=== PATIENT | male | born 1975 | race Caucasian/White ===

== ENCOUNTER 2018-04-06 12:22 | Emergency (ER) | payer OTHER ==
[~2018-04-06] VITALS: Ht 177.8 cm; Wt 97.5 kg
[~2018-04-06 12:22] MED LIST: ADDERALL 20 MG20 M1 PO; ALLOPURINOL; ALLOPURINOL 30300 M3 PO; AMBIEN 10 MG TA10 MG PO; AMITRIPTYLINE H50 M3; AMITRIPTYLINE PO; AMLODIPINE; AMLODIPINE BESY10 MG PO; AMOXICILLIN 50500 M1; APAP500; AUGMENTIN 875875 MG; BACTROBAN22 GM; BENICAR; BENICAR20 MG OR; BENICAR40 MG PO; BIAXIN 500 MG500 M1; CATAPRES-TTS 10.1 M1 TD; CATAPRES-TTS 20.2 M1; CELEXA 20 MG TA20 MG; CELEXA40 MG PO; CLONAZEPAM; CLONIDINE0.1 PO; CO Q-10200 MG PO; DIABETA; DIABETA 1.25M1.25 M1 OR; DIABETA 5MG TABL5 MG PO; DIAZEPAM 2MG TAB2 MG PO; ELAVIL PO; FLEXERIL; FLOXIN OTI0.3 %/5 M1 OTIC; GLUCOPHAGE500 MG PO; GLUMETZA500 PO; GLYBURIDE 5 MG T5 M1 PO; HYDROCODON-ACE1 EAC7; HYDROCODON-ACE1 EAC7 PO; HYDROCODON-ACE1 EAC8; HYDROCODON-ACE1 EAC8 PO; IMITREX4 MG/0.5 M; INVOKANA300 MG PO; KENALOG IN ORABA5 GM DT; L-CARNITINE250 MG PO; LEVAQUIN 500 M500 M2; LEVEMIR SC; LIDODERM 5%1 PATC1 TD; LISINOPRIL10 MG PO; LISINOPRIL20 MG PO; LOPID600 MG PO; LOPRESSOR100 MG PO; LORAZEPAM 1 MG T1 MG PO; LORTAB PO; MAALOX525 MG/15 PO; MAXALT MLT10 MG PO; METFORMIN; METFORMIN HCL500 M2 PO; METOCLOPRAMIDE10 MG PO; MOBIC15 MG PO; NEURONTIN 300300 M1; NEURONTIN 300300 M1 PO; NEXIUM20 M1 PO; NEXIUM40 MG PO; NORVASC 5 MG TAB5 MG PO; NORVASC10 MG OR; OCUFLOX10 ML; ONDANSETRON HCL4 M2 PO; PERCOCET 5-3251 EACH PO; PHENERGAN 25 MG25 M1 PO; PHENERGAN25 M2 PO; PHENERGAN50 MG RC; PREVALITE PACKE1 PKT PO; PROMETHAZINE HC25 M1 PO; PROTONIX40 M2; PROTONIX40 M2 PO; PROZAC40 MG PO; QUESTRAN LIGHT P4 GM; REGLAN 10 MG TA10 MG PO; REMERON15 MG; SEROQUEL 100 M100 M1 PO; SEROQUEL 50 MG50 MG PO; SUBOXONE 2 MG-1 EACH PO; TOPAMAX; TOPAMAX50 MG PO; TOPROL XL100 MG PO; TRAMADOL 50 MG50 MG PO; TRANSDERM-SCOP1 EACH; VENLAFAXIN75 MG/1 T2 PO; VIT B 1; VITAMIN B-1100 M1 PO; XANAX 0.5 MG0.5 M1 PO; XANAX 0.5 MG0.5 MG PO; ZESTRIL40 MG PO; ZOFRAN ODT4 MG PO; ZOFRAN PO; ZOFRAN4 MG PO; ZYPREXA 10 MG T10 M1 PO; ZYPREXA2.5 MG PO
[2018-04-06 13:01] LABS: HEMATOCRIT 38.7 % (42.0-52.0); HEMOGLOBIN 13.1 gm/dL (14.0-18.0); MCH 30.3 pg (26.0-34.0); MCHC 33.8 g/dL (28.0-37.0); MCV 89.8 fL (80.0-100.0); RBC 4.31 mil/uL (4.50-6.00); RDW 14.6 % (10.5-14.5); WBC 8.5 thou/uL (4.0-11.0)
[2018-04-06 13:10] LABS: CALCIUM 9.5 mg/dL (8.5-10.1); CREATININE 1.3 mg/dL (0.7-1.3); POTASSIUM 5.2 mmol/L (3.5-5.1)
[2018-04-06 13:16] LABS: ALBUMIN 3.3 g/dL (3.4-5.0); TOTAL BILIRUBIN 0.3 mg/dL (<0.1-1.0); TOTAL PROTEIN 7.8 g/dL (6.4-8.2)
[2018-04-06] MEDS ORDERED: EFFEXOR XR75 MG PO (15:04)
[2018-04-06] MEDS ORDERED: ZOFRAN ODT4 MG PO (15:04)
[2018-04-06 15:28] VITALS: BP 154/100
== END 2018-04-06 15:30 | disposition home or self-care (01) ==
LOC: ER 12:22
PROVIDERS: Emergency Medicine
DX: F19.280 Other psychoactive substance dependence with psychoactive substance-induced anxiety disorder (principal); E11.65 Type 2 diabetes mellitus with hyperglycemia; I10 Essential (primary) hypertension; M10.9 Gout, unspecified; Z90.49 Acquired absence of other specified parts of digestive tract; F17.210 Nicotine dependence, cigarettes, uncomplicated; Z88.5 Allergy status to narcotic agent

== ENCOUNTER 2018-08-10 01:02 | Emergency (ER) | payer OTHER ==
[~2018-08-10] VITALS: Ht 177.8 cm; Wt 95.3 kg
[~2018-08-10 01:02] MED LIST changes: +EFFEXOR XR75 MG PO
[2018-08-10 01:34] LABS: BE(vivo) -6.1 mmol/L (-2 to +3); HCO3 17.5 mmol/L (22.0-26.0); PCO2 VENOUS 29.3 mmHg (41.0-51.0); PO2 VENOUS 74.7 mmHg (35.0-45.0)
[2018-08-10 01:45] LABS: HEMATOCRIT 36.4 % (42.0-52.0); HEMOGLOBIN 12.4 gm/dL (14.0-18.0); MCHC 34.2 g/dL (28.0-37.0); MCV 90.7 fL (80.0-100.0); RBC 4.01 mil/uL (4.50-6.00); RDW 13.5 % (10.5-14.5); WBC 10.8 thou/uL (4.0-11.0)
[2018-08-10 01:57] LABS: ANION GAP 15 mmol/L (7-16); BUN 21 mg/dL (7-18); CALCIUM 9.4 mg/dL (8.5-10.1); CHLORIDE 97 mmol/L (98-107); CO2 20 mmol/L (21-32); CREATININE 1.2 mg/dL (0.7-1.3); GLUCOSE 276 mg/dL (74-106); POTASSIUM 4.2 mmol/L (3.5-5.1); SODIUM 132 mmol/L (136-145)
[2018-08-10 02:07] LABS: ALBUMIN 3.1 g/dL (3.4-5.0); LIPASE 393 U/L (73-393); SGOT 14 U/L (15-37); SGPT 21 U/L (30-65); TOTAL BILIRUBIN 0.2 mg/dL (<0.1-1.0); TOTAL PROTEIN 7.6 g/dL (6.4-8.2); TROPONIN-I <0.06 ng/mL (<0.06)
[2018-08-10 03:47] LABS: URINE BILIRUBIN NEGATIVE (Negative); URINE BLOOD 1+ (Negative); URINE CLARITY CLEAR; URINE COLOR YELLOW; URINE GLUCOSE-RANDOM* 3+ (Negative); URINE KETONES NEGATIVE (Negative); URINE LEUKOCYTES-REFLEX NEGATIVE (Negative); URINE NITRITE-REFLEX NEGATIVE (Negative); URINE PROTEIN (DIPSTICK) 2+ (Negative); URINE UROBILINOGEN 0.2 E.U./dl (0.2-1.0)
[2018-08-10 03:55] LABS: BACTERIA-REFLEX None Seen /HPF (None Seen); CASTS None Seen /LPF (None Seen); CRYSTALS None Seen /LPF (None Seen); MUCUS None Seen strn/LPF (None Seen); SQUAMOUS None Seen /LPF (0-3); URINE RBC 0-2 Rare /HPF (0-2); URINE WBC-REFLEX None Seen /HPF (0-5)
[2018-08-10] MEDS ORDERED: REGLAN 10 MG TA10 MG PO (03:57)
[2018-08-10 04:03] VITALS: BP 139/84
--- NOTE | 2018-08-10 07:24 | EKG ---
[address] [address] ELECTROCARDIOGRAM REPORT Name: GORDONHYACINTH BHATTNE Room #: DEP Aidan#: [id number] ������������������ Admission: 08/10/18 ������������������ Attend Phys: Discharge: 08/10/18 ������������������ Date of : 71 Report #: [id number] ����������������������������������������������������������������� [id number] THIS REPORT FOR: //name// [facility] ED Test Date: 2018-08-10 Test Time: 01:52:03 Pat Name: HYACINTH LEYVA Department: Room: Gender: M Corrective Therapist: elizabeth : 1975 Requested By: Tamiko Garcia Order Number: [id number] MD: Santhosh Amador Measurements Intervals [place] Rate: 74 P: 49 OH: 158 QRS: 45 QRSD: 90 T: 41 QT: 362 QTc: 402 Interpretive Statements Sinus rhythm Normal tracing Compared to ECG 11/16/2010 16:00:49 No significant changes Electronically Signed On 08-10-2018 7:24:37 CDT by Santhosh Amador [email or web address] ��������������������������������������������� <ELECTRONICALLY SIGNED> ���������������������������������������� By: Santhosh Amador MD, [facility] ��������������������������������������������� 08/10/18 0724 0152 015 Santhosh Amador MD, FACC /EPI
== END 2018-08-10 04:09 | disposition home or self-care (01) ==
LOC: ER 01:02
PROVIDERS: Student in an Organized Health Care Education/Training Program
DX: E11.43 Type 2 diabetes mellitus with diabetic autonomic (poly)neuropathy (principal); K31.84 Gastroparesis; I10 Essential (primary) hypertension; M10.9 Gout, unspecified; F17.210 Nicotine dependence, cigarettes, uncomplicated; Z90.49 Acquired absence of other specified parts of digestive tract; Z79.899 Other long term (current) drug therapy; Z88.5 Allergy status to narcotic agent

== ENCOUNTER 2018-08-28 10:57 | Inpatient (IN) | payer OTHER ==
[~2018-08-28] VITALS: Ht 177.8 cm; Wt 102.1 kg
[2018-08-28 10:57] VITALS: BP 174/114
[~2018-08-28 10:57] MED LIST changes: -VENLAFAXIN75 MG/1 T2 PO
[2018-08-28 12:19] LABS: ABSOLUTE NEUTROPHILS 7.2 thou/uL (1.4-8.2); EOSINOPHILS 1.6 % (0.0-3.0); HEMATOCRIT 41.6 % (42.0-52.0); HEMOGLOBIN 14.5 gm/dL (14.0-18.0); LYMPHOCYTES 14.8 % (24.0-44.0); MCH 31.6 pg (26.0-34.0); MCHC 34.8 g/dL (28.0-37.0); MCV 90.9 fL (80.0-100.0); MONOCYTES 9.1 % (1.0-8.0); PLATELET COUNT 385 thou/uL (150-400); POLYS 73.5 % (36.0-66.0); RBC 4.57 mil/uL (4.50-6.00); RDW 13.9 % (10.5-14.5); WBC 9.8 thou/uL (4.0-11.0)
[2018-08-28 12:23] LABS: BE(vivo) -10.4 mmol/L (-2 to +3); HCO3 12.2 mmol/L (22.0-26.0); PCO2 VENOUS 21.2 mmHg (41.0-51.0); PO2 VENOUS 56.9 mmHg (35.0-45.0)
[2018-08-28 12:27] LABS: CALCIUM 9.7 mg/dL (8.5-10.1); CREATININE 1.4 mg/dL (0.7-1.3); POTASSIUM 3.8 mmol/L (3.5-5.1)
[2018-08-28 12:33] LABS: ALBUMIN 3.8 g/dL (3.4-5.0); TOTAL BILIRUBIN 0.4 mg/dL (<0.1-1.0); TOTAL PROTEIN 8.8 g/dL (6.4-8.2)
[2018-08-28 16:23] VITALS: BP 190/112
[2018-08-28 17:07] LABS: URINE BILIRUBIN NEGATIVE (Negative); URINE BLOOD 2+ (Negative); URINE CLARITY CLEAR; URINE COLOR YELLOW; URINE GLUCOSE-RANDOM* TRACE (Negative); URINE KETONES 1+ (Negative); URINE LEUKOCYTES-REFLEX NEGATIVE (Negative); URINE NITRITE-REFLEX NEGATIVE (Negative); URINE PROTEIN (DIPSTICK) 3+ (Negative); URINE SPECIFIC GRAVITY 1.025 (1.005-1.035); URINE UROBILINOGEN 0.2 E.U./dl (0.2-1.0)
[2018-08-28 17:15] LABS: CASTS None Seen /LPF (None Seen); CRYSTALS None Seen /LPF (None Seen); SQUAMOUS 0-3 Few /LPF (0-3)
[2018-08-28 17:16] LABS: BACTERIA-REFLEX 1-9 Few /HPF (None Seen); URINE RBC 0-2 Rare /HPF (0-2); URINE WBC-REFLEX None Seen /HPF (0-5)
--- NOTE | 2018-08-28 18:36 | NUR ---
CALLED DR. BARONE DUE TO PT CONTINUE TO C/O PAIN. NEW ORDER FOR PAIN MEDS.
--- NOTE | 2018-08-28 19:41 | NUR ---
BED ASSIGNMENT 357
[2018-08-28 20:15] VITALS: BP 190/118
[2018-08-28 20:51] VITALS: BP 208/121
--- NOTE | 2018-08-29 03:11 | NUR ---
PT ADMIT FROM ER WITH SAME S PREVIOUS STAYS. PT CHIEF COMPLAINT IS NAUSEA AND ABDOMINAL PAIN. PT CALLS OUT EVERY 2 HOURS FOR PAIN MEDICATION AND STATES IT DOES NOT FULLY RELIEF PAIN. GAVE ORAL PAIN MEDICATION TO SEE IF THAT WOULD GIVE SOME ADDITIONAL RELIEF, PT STATES NO. CALLED DR. BARONE TO SEE IF WE CAN RESTART PTS ORAL PHENERGAN WHICH PT STATES THAT IT HELPS WITH NAUSEA MORE THAN ZOFRAN. PT WOUND ON RIGHT FOOT ON 3RD TOE HAS 7 SUTURES. WRAPPED IN KERLEX DUE SOME ADDITIONAL BLEEDING, THEN WRAPPED IN KOBAN. POC WITH IVF STARTED AND INFUSING. PT BLOOD SUGARS ARE COMING DOWN FROM INITIAL HIGHS OF 250+. 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
[2018-08-29 05:23] VITALS: BP 170/120
[2018-08-29 05:48] LABS: CALCIUM 8.1 mg/dL (8.5-10.1); CREATININE 1.1 mg/dL (0.7-1.3); POTASSIUM 3.5 mmol/L (3.5-5.1)
[2018-08-29 07:11] VITALS: BP 157/107
--- NOTE | 2018-08-29 11:33 | NUR ---
Assess due to dx DKA. Pt reports diabetes dx in 2011. States lost about 60 lb at that time but has gained about 25 lb back. Limited appetite right now due to abdominal pain, nausea-hx cyclic vomiting syndrome. Also with fractured toe. Pt has high anxiety/stress regarding his health, and finances. Trying to get disability. CM to see. Nutrition education provided-see RD education documentation. Otherwise low nutrition risk
--- NOTE | 2018-08-29 11:57 | NUR ---
TOWARDS POC PT A/O X4, VSS, AFEBRILE, PAIN AND NAUSEA MANAGED BY MEDS. WOUND CARE AND DRESSING DONE. NO CONCERNS VOICED, WILL CONTINUE TO MONITOR.
[2018-08-29 12:06] VITALS: BP 126/65
--- NOTE | 2018-08-29 14:57 | NUR ---
dp sent facesheet to [employer] on patient, per request by Maisha Zamudio/elaine [facility].
--- NOTE | 2018-08-29 16:04 | NUR ---
INITIAL ASSESSMENT: Received consult for diabetes education. YUMIKO reviewed chart and spoke with nursing and attending physician. Pt was admitted from home due to DKA. Pt to be educated on insulin administration. Pt does not have health insurance. YUMIKO met with pt at bedside. Pt with hx of DM. Pt with partial left arm amputation and hx of CVA. Pt states that he lives at home in [place]. He is from his . Pt was unpleasant talking about how he has been denied disability twice. Pt states he has been living off of his savings and does not receive an income. Pt's PCP is Dr. Santo. YUMIKO offered to have [employer] come meet with him to assist with Medicaid application. Pt is agreeable. Pt states that he has not had to be on insulin in the past. farm planner faxed face sheet to [employer]. YUMIKO updated attending physician. YUMIKO is following to assist as needed with discharge planning.
[2018-08-29 16:26] VITALS: BP 119/78
[2018-08-29 20:00] VITALS: BP 125/83
[2018-08-30 04:33] VITALS: BP 135/96
--- NOTE | 2018-08-30 04:47 | NUR ---
PAIN AND NAUSEA MANAGEMENT WAS THE GOAL FOR SHIFT. PT CALLS ON 2HR ANDREI FOR PAIN MEDICATION. PT STATES HE DID NOT GET ANY RELIEF FROM ORAL HYDRO. DISCUSSED WITH PT ABOUT AFTER DISCHARGE AND NOT RECEIVING IV PAIN MEDICATION. REDRESSED IV SITE WITH NEW TRANSPARENT. BLOOD SUGAR AT 2100 WAS 75, SO SCHEDULED AND SLIDING SCALE INSULIN WAS HELD. PT UP TO BATHROOM WITHOUT ASSISTANCE AND NO COMPLAINTS OF PAIN IN THE RIGHT FOOT. BLOOD PRESSURES HAVE BACK IN LINE FROM PREVIOUS SHIFT. HOURLY ROUNDING.
[2018-08-30 07:15] VITALS: BP 141/87
[2018-08-30 11:37] VITALS: BP 145/99
--- NOTE | 2018-08-30 14:54 | NUR ---
SW reviewed chart and spoke with nursing. SW left voice message for [employer] representative to determine if they had met with pt regarding Medicaid application/financial assistance. Awaiting call back at this time. SW is following to assist as needed with discharge planning.
[2018-08-30 15:59] VITALS: BP 153/105
[2018-08-30 18:58] VITALS: BP 149/110
--- NOTE | 2018-08-30 19:48 | NUR ---
Patient up ad matias all shift, heel bearing on right side but is steady. Dressing changed on right foot, wound cleaned with saline. Nausea report after breakfast; patient stated that was the most he ate in a while. Stomach was firm. Oral promethazine given, pt stated the medication helped subside nausea. Patient very fussy and irritable today. Multiple mood changes were noted with a few outburts at staff. Patient needs diabetic education before discharge. Partial progress toward goals at this time.
[2018-08-31 00:40] VITALS: BP 153/106
[2018-08-31 04:34] VITALS: BP 148/103
--- NOTE | 2018-08-31 06:04 | NUR ---
PT MAKING SLOW PROGRESS TOWARDS GOALS. PAIN MEDS PER ORDERS. PER DAY RN PT REFUSING PO PAIN MEDS. DISCUSSED USE OF LORTAB BRIEFLY WITH PT. DID INFORM PT OF THE DOSE AND HE WAS WILLING TO BEGIN DOSING WITH THE LORTAB. IV GIVEN PER DILAUDID GIVEN PER ORDERS. PT INITIALLY RATING RIGHT FOOT PAIN 7-8/10. DOSING WITH PAIN MEDS HAS IMPROVED PAIN RATINGS TO 5-6/10. CONTINUE TO MONITOR.
[2018-08-31 07:28] VITALS: BP 193/117
[2018-08-31 08:54] LABS: HEMATOCRIT 40.6 % (42.0-52.0); HEMOGLOBIN 13.3 gm/dL (14.0-18.0); MCH 31.1 pg (26.0-34.0); MCHC 32.8 g/dL (28.0-37.0); MCV 94.7 fL (80.0-100.0); RBC 4.29 mil/uL (4.50-6.00); RDW 14.7 % (10.5-14.5); WBC 4.8 thou/uL (4.0-11.0)
[2018-08-31 09:06] LABS: ALBUMIN 3.4 g/dL (3.4-5.0); CALCIUM 8.7 mg/dL (8.5-10.1); TOTAL BILIRUBIN 0.3 mg/dL (<0.1-1.0); TOTAL PROTEIN 7.4 g/dL (6.4-8.2)
--- NOTE | 2018-08-31 13:00 | NUR ---
YUMIKO reviewed chart and spoke with nursing and attending physician. Pt is slowly progressing towards goals for discharge. YUMIKO discussed case with [facility] medical device sales representative, who did meet with pt. YUMIKO faxed clinical info to [facility] for review. YUMIKO asked [facility] to meet with pt regarding assistance with diabetes medication/supplies. YUMIKO is following to assist as needed with discharge planning.
--- NOTE | 2018-08-31 13:45 | NUR ---
ASSUMED CARE OF PT AT APPROX 0700. PT IS [place] ORIENTED X4. MONITORED ON TELE AND ABLE TO MAINTAIN 02 SAT >90 ON 02 VIA NC. ASSESSMENT CHARTED. DENIES SOA, EVEN NON LABORED BREATHING. PAIN PARTIALLTY RELIEVED WITH PRN PAIN MEDICATIONS. PT STATES HE DOES NOT FEEL GOOD, DR AWARE AND SAID THAT HE WILL ORDER LABS, AND KEEP PT IN HOSPITAL. PT DOES COMPLAIN OF N/V AT START OF SHIFT BUT WAS RESOLVED AFTER VOMITING. HIGH BP IN AM TREATED WITH MORNING BP SCHEDULED MEDICATIONS. PT UPDATED ON POC. WILL CONTINUE TO MONITOR.
[2018-08-31 15:38] VITALS: BP 137/86
[2018-08-31 19:45] VITALS: BP 123/83
[2018-09-01 03:35] VITALS: BP 133/86
--- NOTE | 2018-09-01 05:17 | NUR ---
PT RESTING IN BED, AWAKE WATCHING TV. PT HAS AMBULATED IN ROOM WITHOUT DIFFICULTY. PT CONTINUES ON RA. SR ON MONITOR. PT PIV SL. PT DID C/O OF NAUSEA ONCE DURING THE SHIFT AND REQUIRED MEDICATION FOR IT. PT HAS NEEDED PAIN MEDICATION FREQUENTLY.
[2018-09-01 07:20] VITALS: BP 136/101
[2018-09-01] MEDS ORDERED: LOTENSIN20 MG PO (09:51)
[2018-09-01] MEDS ORDERED: XARELTO15 MG PO (09:51)
[2018-09-01] MEDS ORDERED: LOPRESSOR100 M1 PO (09:51)
[2018-09-01] MEDS ORDERED: LANTUS100 UNIT/M SUBQ (09:52)
[2018-09-01] MEDS ORDERED: NOVOLOG100 UNIT/1 SUBQ (09:52)
[2018-09-01] MEDS ORDERED: KEFLEX500 M2 PO (09:54)
[2018-09-01 11:02] LABS: ALBUMIN 3.3 g/dL (3.4-5.0); CALCIUM 8.5 mg/dL (8.5-10.1); CREATININE 1.2 mg/dL (0.7-1.3); POTASSIUM 4.1 mmol/L (3.5-5.1); TOTAL BILIRUBIN 0.2 mg/dL (<0.1-1.0); TOTAL PROTEIN 7.1 g/dL (6.4-8.2)
[2018-09-01 11:05] VITALS: BP 140/88
[2018-09-01] MEDS ORDERED: NORCO 10-325 T1 EACH PO (12:55)
[2018-09-01 15:05] VITALS: BP 143/87
--- NOTE | 2018-09-01 15:24 | NUR ---
DISCHARGE NOTE: SW reviewed chart and spoke with nursing. Pt is medically stable for discharge home today. LEROY bradford met with pt at bedside to complete application for assistance with insulin coverage. YUMIKO met with pt at bedside to discuss discharge. Pt tearful regarding frustration with applying for disability and not having money to pay for medications and his bills. Pt's sister assists if she can. Pt has been living off his savings and does not have a monthly income. YUMIKO explained that Xiaoying is working to see if he would qualify for Medicaid. Pt agreeable with completing application. Pt needing medications filled. SW explained that Case Mgmt cannot vouch for pain meds. Pt has script for hydrocodone that he will take to his pharmacy. Director of Case Mgmt approved for pt's other meds to be filled. YUMIKO took scripts to [facility]. Rx to call SW with total for meds and will call the unit when meds are ready to be picked up. Pt needs a cab ride home. YUMIKO confirmed pt's home address: [address] in [place]. Voucher provided to pt's nurse to call when pt is ready. No additional SW needs identified at this time, but is available to assist should needs arise.
--- NOTE | 2018-09-01 15:26 | NUR ---
Assumed care of Pt at 0700. Pt AOX4 in no acute distress. Feeling better with current med regimen. expressing concern about home issues. geriatric social work professor on case. abd US showing improvement. bp improving. up ad matias w/ steady gait. sinus on telemetry. possible discharge later today. pt progressing toward poc goals.
[2018-09-01 16:29] VITALS: BP 143/87
== END 2018-09-01 17:04 | disposition home or self-care (01) | DRG 604 ==
LOC: ER 10:57 → 3W 13:12 → EROBS 13:12 → 3W 20:19
PROVIDERS: Emergency Medicine; ADMIT Family Medicine
PROC: 0HQMXZZ Repair Right Foot Skin, External Approach (ICD-10-PCS; principal; 2018-08-28)
DX: S91.119A Laceration without foreign body of unspecified toe without damage to nail, initial encounter (principal); E11.10 Type 2 diabetes mellitus with ketoacidosis without coma; L03.031 Cellulitis of right toe; I10 Essential (primary) hypertension; M10.9 Gout, unspecified; K75.9 Inflammatory liver disease, unspecified; Z90.49 Acquired absence of other specified parts of digestive tract; Z88.6 Allergy status to analgesic agent; Z87.891 Personal history of nicotine dependence; X58.XXXA Exposure to other specified factors, initial encounter; Y93.89 Activity, other specified; Y92.89 Other specified places as the place of occurrence of the external cause; Y99.8 Other external cause status
CPT/HCPCS: 10879

== ENCOUNTER 2018-11-06 09:09 | Emergency (ER) | payer OTHER ==
[~2018-11-06] VITALS: Ht 177.8 cm; Wt 97.5 kg
[~2018-11-06 09:09] MED LIST changes: +KEFLEX500 M2 PO; +LANTUS100 UNIT/M SUBQ; +LOPRESSOR100 M1 PO; +LOTENSIN20 MG PO; +NORCO 10-325 T1 EACH PO; +NOVOLOG100 UNIT/1 SUBQ; +XARELTO15 MG PO
[2018-11-06 09:10] VITALS: BP 151/96
[2018-11-06] MEDS ORDERED: TRAZODONE HCL50 MG PO (09:58)
== END 2018-11-06 10:08 | disposition home or self-care (01) ==
LOC: ER 09:09
DX: G47.00 Insomnia, unspecified (principal); E11.9 Type 2 diabetes mellitus without complications; I10 Essential (primary) hypertension; M10.9 Gout, unspecified; Z90.49 Acquired absence of other specified parts of digestive tract; Z88.5 Allergy status to narcotic agent; Z87.891 Personal history of nicotine dependence

== ENCOUNTER 2019-02-01 11:29 | Inpatient (IN) | payer OTHER ==
[~2019-02-01] VITALS: Ht 177.8 cm; Wt 95.2 kg
[~2019-02-01 11:29] MED LIST changes: +TRAZODONE HCL50 MG PO
[2019-02-01 11:33] VITALS: BP 190/124
[2019-02-01] MEDS ORDERED: PLAVIX 75 MG TA75 MG PO (12:32)
[2019-02-01 12:36] LABS: URINE BILIRUBIN NEGATIVE (Negative); URINE BLOOD TRACE (Negative); URINE CLARITY CLEAR; URINE COLOR YELLOW; URINE GLUCOSE-RANDOM* 3+ (Negative); URINE KETONES NEGATIVE (Negative); URINE LEUKOCYTES-REFLEX NEGATIVE (Negative); URINE NITRITE-REFLEX NEGATIVE (Negative); URINE PROTEIN (DIPSTICK) TRACE (Negative); URINE SPECIFIC GRAVITY <= 1.005 (1.005-1.035); URINE UROBILINOGEN 0.2 E.U./dl (0.2-1.0)
[2019-02-01 12:47] LABS: HEMATOCRIT 30.9 % (42.0-52.0); MCH 25.8 pg (26.0-34.0); MCHC 32.3 g/dL (28.0-37.0); MCV 79.8 fL (80.0-100.0); PLATELET COUNT 297 thou/uL (150-400); RBC 3.88 mil/uL (4.50-6.00); RDW 16.8 % (10.5-14.5); WBC 7.9 thou/uL (4.0-11.0)
[2019-02-01 12:59] LABS: CALCIUM 9.5 mg/dL (8.5-10.1); CREATININE 1.2 mg/dL (0.7-1.3); POTASSIUM 5.3 mmol/L (3.5-5.1)
[2019-02-01 13:02] LABS: ALBUMIN 2.8 g/dL (3.4-5.0); TOTAL BILIRUBIN 0.2 mg/dL (<0.1-1.0); TOTAL PROTEIN 7.6 g/dL (6.4-8.2)
[2019-02-01 13:18] LABS: ABSOLUTE NEUTROPHILS 4.2 thou/uL (1.4-8.2); METAMYELOCYTES 2 %
[2019-02-01 13:19] LABS: ANISOCYTOSIS 1+; OVALOCYTES 1+
[2019-02-01 16:17] VITALS: BP 163/118
[2019-02-01 16:51] VITALS: BP 166/104
[2019-02-01 17:31] VITALS: BP 141/100
[2019-02-01 19:07] VITALS: BP 153/90
--- NOTE | 2019-02-01 19:32 | NUR ---
Pt arrived on unit at 1700 via WC accompained by STEAM HAMMER OPERATOR.A/OX4,pleasant. Admission paperwork signed. Pt is up ad matias encouraged to call for help as needed since he has a left arm amputation. contacted for admission orders.Dr Long saw pt after admission. Medicated for RUQ pain with relief reported. Resting quietly at this time no distress noted.
--- NOTE | 2019-02-02 03:18 | NUR ---
ASSUMED CARE OF PT AT 1900HRS. PT AOX4 AND LETS NEEDS BE KNOWN. PT IS UP AD SAGAR WITH A STEADY GAIT. PT REPORTED SOME PAIN AND WAS TREATED WITH PRN PAIN MEDS. PAIN WAS POORLY CONTROLLED THIS SHIFT. PROVIDER WAS NOTIFIED AND NEW ORDER RECIEVED. VSS AND NO S/S OF ACUTE DISTRESS. WILL CONTINUE TO MONITOR.
[2019-02-02 03:31] VITALS: BP 119/79
[2019-02-02 08:00] VITALS: BP 157/119
[2019-02-02 08:40] LABS: MCH 25.3 pg (26.0-34.0); MCHC 32.2 g/dL (28.0-37.0); MCV 78.8 fL (80.0-100.0); RBC 3.94 mil/uL (4.50-6.00); WBC 7.7 thou/uL (4.0-11.0)
[2019-02-02 08:55] LABS: ALBUMIN 2.7 g/dL (3.4-5.0); CALCIUM 8.8 mg/dL (8.5-10.1); CREATININE 1.1 mg/dL (0.7-1.3); POTASSIUM 4.4 mmol/L (3.5-5.1); TOTAL BILIRUBIN 0.1 mg/dL (<0.1-1.0); TOTAL PROTEIN 7.2 g/dL (6.4-8.2)
--- NOTE | 2019-02-02 10:30 | NUR ---
INITIAL ASSESSMENT: Pt evaluated for d/c planning needs. Reviewed chart and spoke with nurse and pt. Pt states he lives alone in house. Pt is from his . Pt said he applied for Medicaid, but is not sure if Medicaid was denied. Pt said his father is helping him financially. Pt plans on returning home on d/c from hospital. Will remain available to assist as needed.
[2019-02-02 11:28] LABS: % SATURATION 6 % (20-39); IRON 23 ug/dL (65-175); TIBC 404 ug/dL (250-450)
--- NOTE | 2019-02-02 13:43 | NUR ---
Assess due to RD consult received for diet instruction. Admit with pancreatitis, hepatic stenosis, and workup for liver mass, adrenal gland. Recent diarrhea, cdiff pending. Hx dm, cva, DKA, cyclic vomiting syndrome. Has increased anxiety, depression, psych is following. BG initially very high 498, now coming down to 184-Endocronologist will follow. Wt hx reviewed and appears pt has lost 16 lb since 08/2018=7% moderate rate of loss. Received some basic diet education last admit from this RD. Pt currently npo and lipase was elevated 570. Will address any nutrition education needs at next followup. Otherwise low nutrition risk
[2019-02-02 15:00] VITALS: BP 138/93
--- NOTE | 2019-02-02 17:31 | NUR ---
Received awake on bed. Due medications given as prescribed- able to swallow meds w/o difficulty. A+Ox3-4, very irritable. On room air. On blood sugar monitoring-taken and recorded, with insulin prescribed. A/w stool sampple- sent. With L arm amputation noted. With R AC- SL and R FA, Ns at 100cc/hr, infusing well. With bilat leg edema. Up ad matias. Maintained on isolation, ?MRSA, ? Cdiff, MRSA swab sent, stool specimen sent; a/w result. complained of pain- clock watching; PRN pain meds given as prescribed, pt requested to ask Dr Santo to increase dosage of Dilauded- Dr Santo informed and orders made. Pt with Endo consults, on 24hr urine collections, for Adrenal MRI- pt to be placed on NPO 3-4 hrs- pt informed and aware. With ?wound at R leg- pt does not want me to see the wound, tried several times but pt still refused.
[2019-02-02 19:39] VITALS: BP 135/57
[2019-02-02 19:57] VITALS: BP 148/102
[2019-02-03 07:03] LABS: CHOLESTEROL 272 mg/dL (<200); HDL CHOLESTEROL 24 mg/dL (>40); TC:HDL 11.3 Ratio (Not establshd); TRIGLYCERIDE 694 mg/dL (<150); VLDL 139 mg/dL (<40)
--- NOTE | 2019-02-03 08:01 | NUR ---
progress pt upset with radiology scheduler at beginning of shift because he disagreed with her vital sign routine and was upset that she didn't listen to him, spoke with pt and rechecked vs all wnl pt satisfied after. discussed poc and pt was pleasant and agreeable. rating abdominal pain a 7 to 8 taking 1 mg hydromorphone q2hr with effect he sleeps after doses. iv antibiotics and fluids continue as ordered. pt up ad matias 24hr urine collection continues container on ice in pt's bathroom. tolerating jello and lemon ice, water intake adequate continue poc.
[2019-02-03 08:53] VITALS: BP 133/88
--- NOTE | 2019-02-03 12:07 | HC ---
[facility] [place] [address] CONSULTATION Name: HYACINTH LEYVA Room #: 458-P [facility] M.R.#: [id number] Admission: 02/01/19 Attend Phys: Anibal Santo MD Discharge: Date of : 71 Report #: [id number] THIS REPORT FOR: //name// CC: Anibal Santo DATE OF SERVICE: 02/02/2019 ENDOCRINE CONSULTATION CONSULTING PHYSICIAN: Dr. Long. REASON FOR CONSULTATION: Adrenal mass, uncontrolled type 2 diabetes mellitus. HISTORY OF PRESENT ILLNESS: This is a 43-year-old male patient whose medical background is significant for multiple medical issues including type 2 diabetes mellitus, diabetic gastroparesis, intractable abdominal pain, nausea, vomiting, and diarrhea. The patient was admitted yesterday due to intractable diarrhea, abdominal discomfort, and overall weakness. Again, I was consulted to look into some of his endocrine issues including type 2 diabetes mellitus, which the patient says, was diagnosed over 10 years ago. The patient is somewhat difficult to take a history from, but indicates that he was on oral agents and was somewhat not taking care of diabetes until about a year ago when he agreed to go to insulin therapy. Presently, he is on a combination of Lantus insulin taken as 20 units q.p.m. and Humalog insulin taken as a 3-4 units with some of his meals. The patient believes that his blood glucose control recently has been much improved with most of his values being under 200 mg/dL. He is not aware of issues pertaining to diabetic retinopathy or nephropathy, but does have peripheral numbness and pain in both feet and in his left arm stump. He notes that he has been hospitalized in the past due to elevated blood glucose values and his medical chart notes passed occurrences of DKA. Moreover, the patient was found to have a right adrenal mass some years ago. Again, the patient was asked about the details of that history. He was unable to provide such details and said that he vaguely recalls being worked up for it in the past, but he does not necessarily remember much followup in the past 3-5 years. The patient has episodic palpitations and has hypertension that is well controlled on a combination of metoprolol and benazepril. He has not had dramatic body weight changes lately and has not witnessed new striae over the past year or so. The patient does not have episodic flushing or excessive sweating that he recalls. REVIEW OF SYSTEMS: CONSTITUTIONAL: Fatigue, tiredness, but not significant body weight changes. [place] [address] CONSULTATION Name: HYACINTH LEYVA Room #: 458-P [facility] M.R.#: [id number] Admission: 02/01/19 Attend Phys: Anibal Santo MD Discharge: Date of : 71 Report #: [id number] HEENT: Negative for sore throat, sinus pain, or ear drainage. PULMONARY: Occasional shortness of breath and cough. No hemoptysis. CARDIAC: Palpitations on occasion, but without chest pain or lower extremity edema. NEUROLOGY: Negative for loss of consciousness, seizure activity, but he has intermittent headaches. He has peripheral numbness and occasional pain in his left arm stump. PSYCHIATRIC: The patient reports alcohol abuse, but indicates that he had quit drinking 6 months ago following the of his mother, he has anxiety issues alternating with depression. SKIN: No major issues with ulceration, rash, or other major changes. Otherwise, his review of systems was unremarkable. PAST MEDICAL HISTORY: 1. Type 2 diabetes mellitus. 2. Right adrenal mass. 3. Hypertension. 4. Chronic abdominal pain. 5. Chronic intractable issues with nausea, vomiting, and diarrhea. 6. History of elevated lipase. 7. 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 8. Diabetic gastroparesis. 9. Coronary artery disease, status post TX 3 years ago in September 2018, status post stent placement. 10. Gout. 11. CVA in September 2018. ALLERGIES: MORPHINE. ACTIVE MEDICATIONS: Lantus insulin 10 units q.p.m., NovoLog insulin 3-4 units before meals, benazepril 20 mg daily, metoprolol 100 mg b.i.d., Plavix 75 mg daily, metformin 500 mg p.o. b.i.d., gabapentin 300 mg or 600 mg t.i.d., Effexor XR 150 mg daily, pantoprazole 40 mg daily, metoprolol 100 mg b.i.d., amlodipine 10 mg daily, allopurinol 300 mg daily, clonidine 0.4 mg b.i.d. FAMILY HISTORY: Noted for diabetes. SOCIAL HISTORY: , has 1 son. Smokes 1 pack per day, heavy alcohol use that he claims was last more than 6 months ago. Active marijuana use. PHYSICAL EXAMINATION: GENERAL: Pleasant, male patient, who is not in apparent pain or distress. The patient at times had difficulty formulating thoughts, had somewhat of a slurred speech, paused a lot, and was unable on occasion to recall some of the answers he wanted to present. Otherwise, he seems comfortable, not in apparent distress. [facility] [address] [place] [address] CONSULTATION Name: HYACINTH LEYVA Room #: 458-P [facility] M.Kathrine.#: [id number] Admission: 02/01/19 Attend Phys: Anibal Santo MD Discharge: Date of : 71 Report #: [id number] VITAL SIGNS: Blood pressure is 157/119, heart rate is 66, respiration rate 20, temperature of 35.4 degrees. CONSTITUTIONAL: He appears comfortable, not in apparent distress. HEENT: Anicteric sclerae. Intact extraocular motions. NECK: Supple, without JVD, carotid bruits, or lymphadenopathy. I do not appreciate thyromegaly. CHEST: Clear to auscultation with moderate air entry with scattered rales. HEART: Regular rate and rhythm without murmurs or gallops. ABDOMEN: Soft and lax with generalized tenderness on deep palpation, but without guarding. No appreciated organomegaly. He has active bowel sounds. EXTREMITIES: Lower extremity exam: Negative for ankle edema, appreciable pedal pulses. Sensation to light touch is moderately diminished. MUSCULOSKELETAL: Status post left traumatic upper extremity amputation. Stump is intact. No overlying skin changes or ulcerations. NEUROLOGIC: Awake, alert, and oriented to time, place, and person. As mentioned above, he pauses frequently, seems to have gaps in memory, has difficulty formulating thoughts on occasion. PSYCHIATRIC: Awake, alert, seems to have a depressed mood and affect, has difficulty formulating thoughts, but able to answer most of my questions. LABORATORY DATA: Blood glucose on arrival was 363 mg/dL; this morning, it was 182 mg/dL. Otherwise, sodium 136, potassium 4.4, chloride 104, CO2 of 23, anion gap 9, BUN 22, creatinine 1.1, AST 11. Amylase 78, lipase 227, total bilirubin 0.1, phosphorus 4.3, magnesium 1.8, alkaline phosphatase 155, ALT 26, total protein 7.2, albumin 2.7, GFR 72. Lactic acid 2.1. Troponin undetectable. White blood count 7.7, hemoglobin 10, hematocrit 31, platelets 309. Adrenal workup from May 2010 including a plasma and urine metanephrines, epinephrine, and norepinephrine were all within normal limits. IMAGING DATA: Radiology workup included an abdominal ultrasound from this admission, which notes a right adrenal angiomyolipoma that is appreciated at [address] scan from August 2018 described a 4.1-cm, fat-containing mass involving the right adrenal gland suggesting a myolipoma and that determined that it had increased in size significantly since 2015, ASSESSMENT AND PLAN: 1. Type 2 diabetes mellitus. The patient has been under inadequate control as per his reported blood glucose values and as per the blood glucose values documented during this admission. The patient and I had a lengthy discussion about the importance of achieving and maintaining adequate glycemic control so as to prevent future microvascular or macrovascular complications. The patient was instated on his reported regimen of Lantus insulin 10 units q.p.m. upon admission, as well as 10 units of Humalog insulin before meals, and he seems to have improved his fasting blood glucose control quite a bit. That said, I will maintain the current regimen for the time being as we maintain observation and monitoring of his blood glucose values a.c. and at bedtime and adjust his [address] [address] CONSULTATION Name: GORDONHYACINTH BHATT NIKOLAI Room #: 458-P [facility] M.R.#: [id number] Admission: 02/01/19 Attend Phys: Anibal Santo MD Discharge: Date of : 71 Report #: [id number] regimen accordingly. Furthermore, I would like to order a hemoglobin A1c to better assess his level of control recently. 2. Right adrenal mass. As noted above, the patient has been known to have the notion of a right adrenal mass at least as of 8 years ago judging by the availability of a 24-hour urine adrenal studies from 2010. However, he has not been able to provide much insight into that history. Currently, we have a report on his current abdominal ultrasound indicating that his right adrenal mass has grown to 6 cm compared to reported 4.[address] scan study from August 2018, which in itself reported that this 4.1-cm size was considerably larger than 2016. For starters, I would certainly like to establish this comparison on the basis of CT scan studies rather than an ultrasound, both for size accuracy as well as to be able to determine the constituency of this mass with a better accuracy. That said, I will order an adrenal protocol CT scan study with and without contrast for a better assessment. Additionally, the patient will need further functional assessment with the appropriate endocrine studies including serum aldosterone renin activity fractionated metanephrines. I will order 24-hour urine studies for metanephrines and cortisol as well. Clinically, the patient does not give the indication of a cushingoid outlook, and he does not necessarily have classic symptoms of pheochromocytoma activity, but it is noticeable that his blood pressure is resistant and is rather poorly controlled on the current medications. Further recommendations would be made following these studies. I discussed this issue at length with the patient and I counseled him about the implications, both structural and functional of adrenal masses and he understands that at the end of therapeutic spectrum, a surgical intervention would occasionally be needed to definitively address these issues. Further therapeutic recommendations will follow these studies, 3. Hypertension. The patient's level of blood pressure control is marginal on the current antihypertensive regimen, I will defer to Dr. Santo on this issue. 4. Diabetic neuropathy. The patient has severe diabetic neuropathy and reports some improvement with gabapentin, he is to continue with the same regimen. 5. Hyperlipidemia. It does not seem that the patient is on active lipid-lowering therapy. Given his background that is noted for type 2 diabetes mellitus and documented coronary artery disease and cerebrovascular accident, aggressive cholesterol control as needed. I will request a lipid panel to further assess his therapeutic needs. I certainly appreciate this consultation by Dr. Long. <ELECTRONICALLY SIGNED> By: Tonya Alexander MD 02/03/19 1207 [id number] Tonya Alexander MD /nt
[2019-02-03 15:00] VITALS: BP 161/100
[2019-02-03 19:50] VITALS: BP 165/98
--- NOTE | 2019-02-03 21:21 | NUR ---
PATIENT ALERT AND ORIENTED AND BELIGERANT WITH STAFF, WITH FOUL LANGUAGE TOWARDS STAFF AND HIS GENERAL SPEECH STATING THAT'S BECAUSE HIS CVA. PATIENT FREQUENTLY ASKING FOR PAIN MEDICATIONS FOR HIS ABDOMEN. DR. BARONE HAVE NEW ORDERS FOR PAIN MANAGEMENT. PATIENT STATES HE'S DEPRESSED AND NO ONE HAS COME TO VISIT HIM. PATIENT DISCONNNECTED HIS IV DURING THE DAY. IV WAS RECONNECTED BY THIS NURSE AND EDUCATED PATIENT NOT TO DISCONNECT IV FLUIDS. OCCULT STOOL SENT TO LAB.
[2019-02-04 03:11] LABS: GLYCOHEMOGLOBIN (HGB A1C) 12.9 % (4.8-5.6)
[2019-02-04] MEDS ORDERED: QUETIAPINE FUM200 MG PO (03:50)
[2019-02-04 07:45] VITALS: BP 116/87
--- NOTE | 2019-02-04 09:15 | NUR ---
PROGRESS PT A/O X4 VERY EMOTIONAL GETS UPSET VERY EASILY. IS FRUSTRATED WITH HIS CARE HE FEELS LIKE NOBODY LISTENS TO HIM AND NOT FAST ENOUGH TO MEET HIS NEEDS. DISCUSSED POC AND HOW HE IS FEELING AND HE SETTLED DOWN AND THANKED ME FOR LISTENING MUCH CALMER AFTER. IVF'S CONTINUE TAKING 30 MG OXYCODONE Q4HRS FOR PAIN WITH EFFECT VOIDING QS, 24 HOUR URINE COLLECTION TO BE RESTARTED THIS AM. CONTINUE TO MONITOR
[2019-02-04 14:48] VITALS: BP 118/83
--- NOTE | 2019-02-04 19:27 | NUR ---
Assumed pt care this am, pt is very beligerant and wound demand that pain medication be given to him and it has to be IV as per the pt GI doctor allowed him to do so and to inform Dr. Santo. Pt started shouting and Dr. Guillory walked in the room, I informed the pt what was in the order. Pt stated no one listens to him. EGD consent signed. 24 hour urine sample restarted at 10 am informed the pm nurse to inform the day nurse. Pt is to DG figueroa for the procedure romy. POC followed, no other signs of distress have been noted.
[2019-02-04 19:30] VITALS: BP 138/89
--- NOTE | 2019-02-05 02:40 | NUR ---
PATIENT AOX4 MAKES NEEDS KNOWN. PATIENT HAS BEEN NPO SINCE MIDNIGHT. PAIN CONTROLLED THIS SHIFT. PATIENT IS UP AT SAGAR, PATIENT AMBULATES WITH STEADY GAITS. PATIENT CALM AND COOPERATIVE WITH MEDS AND CARE. PATIENT IN BED ASLEEP AT THIS TIMR BREATHING REGULAR AND UNLABOURED.
[2019-02-05 08:00] VITALS: BP 177/90
--- NOTE | 2019-02-05 13:53 | NUR ---
SW reviewed chart. Pt had EGD with biopsy earlier today. Pt's diet to be advanced. Pt [place] a [place] at this time. Plan is for pt to discharge home when medically stable. SW is following to assist as needed with discharge planning.
[2019-02-05 15:00] VITALS: BP 123/93
--- NOTE | 2019-02-05 19:48 | NUR ---
ALERTX4, FROM HOME. PAIN MANAGED WITH MEDICATIONS, EGD COMPLETED TODAY. GASTRIC EMPTYING TEST TOMORROW, PT TO BE NPO AFTER MIDNIGHT WITH NO NARCOTIC AFTER MIDNIGHT.
[2019-02-05 20:10] VITALS: BP 142/87
--- NOTE | 2019-02-06 03:20 | NUR ---
ASSUMED CARE OF PT AT 1900HRS. PT AOX4 AND LETS NEEDS BE KNOWN. FALL PRECAUTION IN PLACE. PT RECIEVED 1 UNIT FFP THIS SHIFT WITHOUT ANY COMPLICATIONS. PT REPORTED SOME PAIN AND WAS TREATED WITH PRN PAIN MEDS. PT IS SEVERELY JAUNDICED WITH A DISTENDED ABD. PT PLACED NPO AT MIDNIGHT FOR A PARACENTEIS. PT WAS APURVA TO GET COMFORTABLE AND SLEEP PART OF THE SHIFT. VSS AND NO S/S OF ACUTE DISTRESS. WILL CONTINUE TO MONITOR.
[2019-02-06 07:35] VITALS: BP 135/96
[2019-02-06] MEDS ORDERED: ATORVASTATIN CA10 MG PO (10:46)
[2019-02-06] MEDS ORDERED: FENOFIBRATE54 MG PO (10:46)
[2019-02-06 12:27] VITALS: BP 135/96
--- NOTE | 2019-02-06 15:07 | PATH ---
[facility] [place] [address] PATHOLOGY RPT PROCEDURE Name: HYACINTH LEYVA Room #: 458-P DIS IN M.R.#: [id number] Admission: 02/01/19 Date of : 71 Discharge: 02/06/19 Report #: [id number] Path Case #: [id number] [facility] Accession Number: [id number] . 01 Material submitted: . PART A: duodenum - BX OF DUODENUM PART B: stomach - BX OF GASTRIC ANTRUM . 01 Clinical history: . N/V/D-abdominal pain . 02 Diagnosis: A. Small bowel mucosa, duodenum to rule out celiac, endoscopic biopsy: - Nonspecific congestion and hemorrhage within lamina propria. - Negative for active inflammation. - Negative for villous blunting or increase in intraepithelial lymphocytes. . B. Gastric mucosa, gastric antrum to rule out H. pylori, endoscopic biopsy: - Moderate reactive gastropathy. - Negative for intestinal metaplasia or atrophy. - Negative for Helicobacter pylori (properly controlled immunohistochemical stain performed). . (IUV:salt manager; 02/06/2019) MBR 02/06/2019 1057 Local . 02 Electronically signed: . Stacy Manjarrez MD, Pathologist NPI- [id number] . 01 Gross description: . A. Received in formalin labeled "Hyacinth Leyva, BX of duodenum," and additionally labeled on the requisition as "to rule out celiac," are 2 segments of james soft tissue measuring 0.7 x 0.2 x 0.1 cm in aggregate dimensions and ranging from 0.3 to 0.4 cm in maximum dimension. The specimen is submitted entirely in cassette A1. . B. Received in formalin labeled "Hyacinth Leyva, BX of gastric antrum," and additionally labeled on the requisition as "to rule out H. pylori," are 2 segments of james soft tissue measuring 0.9 x 0.3 x 0.2 cm in aggregate dimensions and ranging from 0.4 to 0.5 cm in maximum dimension. The specimen is submitted entirely in cassette B1. (TSD; 02/05/2019) TOB/TOB 02/05/2019 1814 Local . [address] [address] PATHOLOGY RPT PROCEDURE Name: HYACINTH LEYVA NIKOLAI Room #: 458-P DIS IN M.R.#: [id number] Admission: 02/01/19 Date of : 71 Discharge: 02/06/19 Report #: [id number] Path Case #: [id number] Pathologist provided ICD-10: K31.89, K31.9 . 02 CPT . 254390, [id number], [id number] Specimen Comment: A courtesy copy of this report has been sent to [phone] Specimen Comment: [phone] Specimen Comment: Report sent to and Performed at: [address], [place] [id number] MD Merlin Wade MD Phone: [phone] Performed at: [address] [id number] MD Stacy Manjarrez MD Phone: [phone]
--- NOTE | 2019-02-06 20:46 | NUR ---
Received awake on bed. Due medications given as prescribed, able to swallow meds w/o difficulty. A+Ox4. On room air. With L arm amputation. With SL at R FA and R AC. Up ad matias. Vital signs stable. On blood sugar monitoring, taken and recorded accordingly, with insulin prescribed. able to use urinal to pass urine. Maintained on isolation due to MRSA at nares. Pt seen by Dr Santo, with discharge orders made. Discharge instructions, follow up schedule and prescription given and instructed to patient. IV discontinued. Verified with Dr Long and Dr Phelan re: discharge instructions, included on discharge packet. Pt brought down with his personal belongings via wheelchair.
--- NOTE | 2019-02-08 08:08 | HC ---
[facility] [address] [place] [address] CONSULTATION Name: GORDONHYACINTH NIKOLAI Room #: 458-P [facility] IN M.R.#: [id number] Admission: 02/01/19 Attend Phys: Anibal Santo MD Discharge: 02/06/19 Date of : 71 Report #: [id number] THIS REPORT FOR: //name// CC: Anibal Santo DATE OF SERVICE: 02/02/2019 ADDENDUM I reviewed the patient's clinical and laboratory data as well as historic data via his electronic chart for well over 35 minutes. <ELECTRONICALLY SIGNED> By: Tonya Alexander MD 02/08/19 0808 [id number] Tonya Alexander MD /nt
[2019-02-08 11:08] LABS: RENIN 0.461 ng/mL/hr (0.167-5.380)
[2019-02-09 02:10] LABS: ALDOSTERONE 1.6 ng/dL (0.0-30.0)
[2019-02-11 16:10] LABS: URINE FREE CORTISOL 2 ug/24 hr (5-64)
[2019-02-14 05:07] LABS: URINE DOPAMINE 53 ug/L (Undefined); URINE EPINEPHRINE < 1 ug/L (Undefined); URINE NOREPINEPHRINE 15 ug/L (Undefined)
== END 2019-02-06 14:29 | disposition home or self-care (01) | DRG 73 ==
LOC: ER 11:29 → 4W 14:01 → EROBS 14:01 → 4W 17:08
PROVIDERS: Internal Medicine; Nurse Practitioner; Physician Assistant; ADMIT Family Medicine
DX: E11.43 Type 2 diabetes mellitus with diabetic autonomic (poly)neuropathy (principal); K85.90 Acute pancreatitis without necrosis or infection, unspecified; N17.9 Acute kidney failure, unspecified; E11.40 Type 2 diabetes mellitus with diabetic neuropathy, unspecified; K29.70 Gastritis, unspecified, without bleeding; I10 Essential (primary) hypertension; M10.9 Gout, unspecified; E11.65 Type 2 diabetes mellitus with hyperglycemia; G89.29 Other chronic pain; R10.9 Unspecified abdominal pain; I25.10 Atherosclerotic heart disease of native coronary artery without angina pectoris; E27.9 Disorder of adrenal gland, unspecified; F32.9 Major depressive disorder, single episode, unspecified; F12.90 Cannabis use, unspecified, uncomplicated; K31.84 Gastroparesis; K76.0 Fatty (change of) liver, not elsewhere classified; F10.10 Alcohol abuse, uncomplicated; D50.9 Iron deficiency anemia, unspecified; E78.5 Hyperlipidemia, unspecified; E87.6 Hypokalemia; F41.9 Anxiety disorder, unspecified; Z89.222 Acquired absence of left upper limb above elbow; Z87.891 Personal history of nicotine dependence; Z90.49 Acquired absence of other specified parts of digestive tract; Z86.73 Personal history of transient ischemic attack (TIA), and cerebral infarction without residual deficits; I25.2 Old myocardial infarction; Z88.6 Allergy status to analgesic agent; Z79.4 Long term (current) use of insulin
CPT/HCPCS: 10040; 62110; 62900; 70005

== ENCOUNTER 2019-02-25 08:16 | Inpatient (IN) | payer OTHER ==
[~2019-02-25] VITALS: Ht 177.8 cm; Wt 97.5 kg
[~2019-02-25 08:16] MED LIST changes: +ATORVASTATIN CA10 MG PO; +FENOFIBRATE54 MG PO; +PLAVIX 75 MG TA75 MG PO; +QUETIAPINE FUM200 MG PO
[2019-02-25 08:17] VITALS: BP 126/85
[2019-02-25] MEDS ORDERED: REGLAN 10 MG TA10 MG PO (08:52)
[2019-02-25 09:04] LABS: URINE BILIRUBIN NEGATIVE (Negative); URINE BLOOD TRACE (Negative); URINE CLARITY CLEAR; URINE COLOR YELLOW; URINE GLUCOSE-RANDOM* 3+ (Negative); URINE KETONES NEGATIVE (Negative); URINE LEUKOCYTES-REFLEX NEGATIVE (Negative); URINE NITRITE-REFLEX NEGATIVE (Negative); URINE PROTEIN (DIPSTICK) NEGATIVE (Negative); URINE UROBILINOGEN 0.2 E.U./dl (0.2-1.0)
[2019-02-25 09:45] LABS: ABSOLUTE NEUTROPHILS 11.8 thou/uL (1.4-8.2); BASOPHILS 0.8 % (0.0-2.0); EOSINOPHILS 1.8 % (0.0-3.0); HEMATOCRIT 33.4 % (42.0-52.0); HEMOGLOBIN 10.3 gm/dL (14.0-18.0); LYMPHOCYTES 9.1 % (24.0-44.0); MCH 24.8 pg (26.0-34.0); MCHC 30.8 g/dL (28.0-37.0); MCV 80.5 fL (80.0-100.0); MONOCYTES 8.9 % (1.0-8.0); PLATELET COUNT 225 thou/uL (150-400); POLYS 79.4 % (36.0-66.0); RBC 4.15 mil/uL (4.50-6.00); RDW 17.5 % (10.5-14.5); WBC 14.9 thou/uL (4.0-11.0)
[2019-02-25 09:59] LABS: ALBUMIN 2.9 g/dL (3.4-5.0); ANION GAP 10 mmol/L (7-16); BUN 36 mg/dL (7-18); CALCIUM 9.1 mg/dL (8.5-10.1); CHLORIDE 94 mmol/L (98-107); CO2 17 mmol/L (21-32); CREATININE 1.6 mg/dL (0.7-1.3); LIPASE 762 U/L (73-393); SODIUM 121 mmol/L (136-145); TOTAL BILIRUBIN < 0.1 mg/dL (<0.1-1.0)
[2019-02-25 10:02] LABS: GLUCOSE 530 mg/dL (74-106)
[2019-02-25 10:09] LABS: SGPT 7 U/L (30-65)
[2019-02-25 10:23] LABS: SGOT < 5 U/L (15-37)
[2019-02-25 11:34] VITALS: BP 125/88
--- NOTE | 2019-02-25 12:56 | NUR ---
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 PT HAS STATED THAT HIS JORDAN SITS AT HOME ALL DAY IN THE PT'S HOUSE BUT DOES NOT CONTRIBUTE FINANCIALLY, WITH HOUSEWORK, OR WITH PT'S CARE. PT STATES HE WOULD BE INTERESTED IN SPEAKING WITH SOCIAL WORK ABOUT RESOURCES TO ASSIST HIM WITH THIS SITUATION BECAUSE, HE STATES, "I CANNOT HAVE THAT MAN IN MY HOUSE MUCH LONGER"; HAVE MADE FLOOR NURSE AWARE OF THE NEED TO CONTACT SOCIAL WORK IN REPORT; ALSO MADE IND[employer] PROFESSOR AND MY CHARGE NURSE AWARE OF SITUATION.
[2019-02-25 13:06] VITALS: BP 137/79
--- NOTE | 2019-02-25 16:18 | NUR ---
ASSUMED CARE OF PT APPROX. 1315. PATIENT A&OX4, VSS, C/O PAIN IN ABDOMEN. ADMISSION ASSESSMENT COMPLETE, DOCTOR NOTIFIED, MED REC COMPLETED BY ER. NO SIGNS OF DISTRESS. ABDOMEN SOFT, DISTENDED, BOWEL SOUNDS ACTIVE. NO N/V/D AT THIS TIME. WILL CONTINUE TO MONITOR.
[2019-02-25 16:37] VITALS: BP 143/97
[2019-02-25 19:07] VITALS: BP 132/88
--- NOTE | 2019-02-26 05:09 | NUR ---
PATIENT ALERT AND ORIENTED X4. CONTACT ISOLATION FOR MRSA. COOPERATIVE WITH CARE BUT FUSSY AT TIMES. MEDICATED FOR PAIN X2 AT TIME OF NOTE. BS MONITORED PER ORDER. UP MOST OF THE NIGHT, ASLEEP AT TIME OF NOTE. WILL MONITOR.
[2019-02-26 08:00] VITALS: BP 131/96
[2019-02-26] MEDS ORDERED: PERCOCET 10-321 EAC1 PO (08:05)
[2019-02-26 08:16] VITALS: BP 132/88
[2019-02-26 09:21] LABS: CALCIUM 8.8 mg/dL (8.5-10.1); CREATININE 1.4 mg/dL (0.7-1.3); POTASSIUM 4.5 mmol/L (3.5-5.1)
[2019-02-26 09:52] VITALS: BP 131/90
--- NOTE | 2019-02-26 11:48 | NUR ---
PT A&OX4, VSS, PAIN IN ABDOMEN. PAIN MEDICATION GIVEN. PATIENT HAS NAUSEA NO V/D. NO SIGNS OF DISTRESS. PATIENT HAS ORDERS FOR DISCHARGE. PATIENT WANTS TO TALK TO SPECIALTY PERSON BEFORE DISCHARGING. WILL CONTINUE TO MONITOR.
--- NOTE | 2019-02-26 14:34 | NUR ---
PT ADMITTED RELATED TO NAUSEA,UPPER ABD PAIN,HYPERGLYCEMIA,ADELA. CM REVIEWED CHART AND SPOKE WITH CARE TEAM. CM MET WITH PT AT BEDSIDE THIS DAY. PT IS A&O X4. CM ROLE INTRODUCED. PT INDICATED HE LIVES IN A HOUSE ALONE AND THAT HIS SISTER COMES AND GOES FROM THERE AT TIMES. PT INDICATED HE HAD BEEN INDEPDENENT WITH GAIT AND ADLS. PT INDICATED HE IS FRUSTRATED WITH HIS AND SISTER HE CAN'T GET AHOLD OF THEM FOR A RIDE HOME. PT INDICATED THAT HE DOESN'T ANTICIAPTE ANY NEEDS UPON DC. PT IS TO DISCHARGE HOME WITH NO NEEDS ONCE MEDICALLY STABLE ANTICPATED DC HOME TODAY.
== END 2019-02-26 17:06 | disposition home or self-care (01) | DRG 74 ==
LOC: ER 08:16 → EROBS 11:45 → 4W 11:45
PROVIDERS: Emergency Medicine; ADMIT Family Medicine
DX: E11.43 Type 2 diabetes mellitus with diabetic autonomic (poly)neuropathy (principal); N17.9 Acute kidney failure, unspecified; E87.0 Hyperosmolality and hypernatremia; F32.9 Major depressive disorder, single episode, unspecified; E11.65 Type 2 diabetes mellitus with hyperglycemia; K31.84 Gastroparesis; I10 Essential (primary) hypertension; M10.9 Gout, unspecified; Z90.49 Acquired absence of other specified parts of digestive tract; Z89.202 Acquired absence of left upper limb, unspecified level; Z86.73 Personal history of transient ischemic attack (TIA), and cerebral infarction without residual deficits; I25.2 Old myocardial infarction; Z89.421 Acquired absence of other right toe(s); Z88.6 Allergy status to analgesic agent; Z79.4 Long term (current) use of insulin
CPT/HCPCS: 10040

== ENCOUNTER 2019-03-06 00:08 | Observation (INO) | payer OTHER ==
[~2019-03-06] VITALS: Ht 177.8 cm; Wt 93.0 kg
[~2019-03-06 00:08] MED LIST changes: +PERCOCET 10-321 EAC1 PO
[2019-03-06 00:23] VITALS: BP 166/100
[2019-03-06 01:28] LABS: ABSOLUTE NEUTROPHILS 8.5 thou/uL (1.4-8.2); BASOPHILS 0.6 % (0.0-2.0); EOSINOPHILS 2.5 % (0.0-3.0); HEMATOCRIT 35.8 % (42.0-52.0); HEMOGLOBIN 11.5 gm/dL (14.0-18.0); LYMPHOCYTES 14.2 % (24.0-44.0); MCH 25.5 pg (26.0-34.0); MCHC 32.1 g/dL (28.0-37.0); MCV 79.4 fL (80.0-100.0); MONOCYTES 4.7 % (1.0-8.0); PLATELET COUNT 295 thou/uL (150-400); RDW 18.8 % (10.5-14.5); WBC 10.9 thou/uL (4.0-11.0)
[2019-03-06 01:31] LABS: URINE BILIRUBIN NEGATIVE (Negative); URINE BLOOD 1+ (Negative); URINE CLARITY CLEAR; URINE COLOR YELLOW; URINE GLUCOSE-RANDOM* 3+ (Negative); URINE KETONES NEGATIVE (Negative); URINE LEUKOCYTES-REFLEX NEGATIVE (Negative); URINE NITRITE-REFLEX NEGATIVE (Negative); URINE PROTEIN (DIPSTICK) 2+ (Negative); URINE UROBILINOGEN 0.2 E.U./dl (0.2-1.0)
[2019-03-06 01:38] LABS: ANION GAP 11 mmol/L (7-16); BUN 28 mg/dL (7-18); CALCIUM 9.2 mg/dL (8.5-10.1); CHLORIDE 97 mmol/L (98-107); CO2 22 mmol/L (21-32); CREATININE 1.4 mg/dL (0.7-1.3); GLUCOSE 301 mg/dL (74-106); POTASSIUM 5.2 mmol/L (3.5-5.1); SODIUM 130 mmol/L (136-145)
[2019-03-06 01:43] LABS: ALBUMIN 3.4 g/dL (3.4-5.0); DIRECT BILIRUBIN < 0.1 mg/dL (<0.1-0.3); SGOT 12 U/L (15-37); SGPT 12 U/L (30-65); TOTAL BILIRUBIN < 0.1 mg/dL (<0.1-1.0); TOTAL PROTEIN 8.1 g/dL (6.4-8.2)
[2019-03-06 01:56] LABS: BACTERIA-REFLEX 1-9 Few /HPF (None Seen); CRYSTALS None Seen /LPF (None Seen); HYALINE CASTS 0-3 Few /LPF (None Seen); MUCUS 0-3 Light strn/LPF (None Seen); SQUAMOUS 0-3 Few /LPF (0-3); URINE RBC 3-10 Few /HPF (0-2); URINE WBC-REFLEX 0-5 Rare /HPF (0-5)
[2019-03-06 04:34] VITALS: BP 166/100
[2019-03-06 05:06] VITALS: BP 154/103
--- NOTE | 2019-03-06 06:53 | NUR ---
Pt arrived on unit at 0510 via cart from ED. A/OX4,C/o nausea no emesis. Pt educated on fall safety and fall precautions initiated. IVF infusing via Right hand IV without problems. C/o generalized aches allover especially abd,will notify . Resting quietly in bed will continue to monitor pt.
[2019-03-06 07:04] VITALS: BP 146/96
--- NOTE | 2019-03-06 14:50 | NUR ---
PT ADMITTED RELATED TO MILD DEHYDRATION, N/V, GASTROPARESIS. PT IS FAMILIAR TO CM FROM PREVIOUS ADMISSION. CM REVIEWED CHART AND SPOKE WITH CARE TEAM. PT LIVES IN A HOUSE ALONE AND HIS SISTER COMES AND GOES FROM THERE AT TIMES. PT HAD BEEN INDEPDENENT WITH GAIT AND ADLS. PT INDICATED THAT HE DOESN'T ANTICIAPTE ANY NEEDS UPON DC. PT IS TO DISCHARGE HOME WITH NO NEEDS ONCE MEDICALLY STABLE ANTICPATED DC HOME TODAY.
[2019-03-06 15:25] VITALS: BP 146/96
--- NOTE | 2019-03-06 15:31 | NUR ---
RECEIVED PT'S CARE AROUND 0700; PT. ON BED; AOX4; DURING ASSESSMENT C/O PAIN OVER ABDOMEN; PRN PAIN MEDICATION GIVEN TOGETHER WITH AM MEDICATIONS; DR. BARONE ROUNDING EARLY ON THE MORNING; BS BELOW 150; DURING PAIN REASSESSMENT PT. ST. NO DECREASE PAIN; REQUESTED PHYSICIAN TO BE PAGED DUE TO NO DECREASE PAIN; C/O NAUSEA; NO NAUSEA MEDICATION DUE; EDUCATED ABOUT IT; PHYSICIAN CONTACTED; ORDERS RECEIVED; IV ANTI-NAUSEA GIVEN; REFUSED PRN ANTI-NAUSEA MEDICATION; INFORMED ABOUT D/C ORDERS; ST. UNDERSTANDING; ASSESSMENT CHARGED; FOLLOWING POC; WORKING ON D/C ORDERS;
== END 2019-03-06 16:01 | disposition home or self-care (01) ==
LOC: ER 00:08 → EROBS 03:53 → 4W 05:09
PROVIDERS: Emergency Medicine; ADMIT Family Medicine
DX: R11.2 Nausea with vomiting, unspecified (principal); N17.9 Acute kidney failure, unspecified; G89.29 Other chronic pain; E11.43 Type 2 diabetes mellitus with diabetic autonomic (poly)neuropathy; K31.84 Gastroparesis; I10 Essential (primary) hypertension; E11.10 Type 2 diabetes mellitus with ketoacidosis without coma; E86.0 Dehydration; Z79.4 Long term (current) use of insulin; Z79.899 Other long term (current) drug therapy

== ENCOUNTER → 2019-10-18 | Outpatient (CLI) | payer OTHER ==
[~2019-10-18] MED LIST changes: +ATIVAN1 M1 PO; +DIVALPROEX SOD500 MG PO; +FENOFIBRATE150 MG PO; +NEURONTIN 300M300 M2 PO; +NORTRIPTYLINE H25 M3 PO
[2019-10-18 16:10] VITALS: BP 156/86
--- NOTE | 2019-10-18 16:16 | NUR ---
IN FOR ROCEPHIN INFUSION FOR OSTEOMYELITIS OF FEET. PATIENT STATED FEET HURTING TODAY AND RATED PAIN #7. PATIENT STATED HE DOES NOT HAVE ANY PAIN MEDS. ADVISED PATIENT TO CALL DR. BARONE FOR SOMETHING TO HELP WITH PAIN. ADMISSION HISTORY AND ASSESSMENT COMPLETED. TOLERATED INFUSION WITHOUT INCIDENT. JOHNNIE DOUBLE LUMEN PICC LINE INTACT WITH SMALL AMOUNT OF BRUISING. DRESSING CHANGED. PATIENT STATED IS DOING HIS FOOT DRESSING CHANGES AT HOME. DID NOT SEE WOUNDS. TO RETURN TOMORROW FOR NEXT INFUSION. DISMISSED IN STABLE CONDITION.
== END ==
LOC: OPONC 09:00
PROVIDERS: ATTEND Family Medicine
DX: M86.8X7 Other osteomyelitis, ankle and foot (principal)
CPT/HCPCS: 95000

== ENCOUNTER → 2019-10-19 | Outpatient (CLI) | payer OTHER ==
[2019-10-19 13:33] VITALS: BP 142/92
--- NOTE | 2019-10-19 13:36 | NUR ---
IN FOR DAILY ROCEPHIN INFUSION. STATED FEELING A LITTLE BETTER TODAY. MUCH LESS REDNESS NOTED TO FACE. DENIED NAUSEA, DIARRHEA, FEVER, CHILLS. PICC LINE LOOKS GOOD WITH GOOD BLOOD RETURN FROM BOTH LUMENS. TOLERATED INFUSION WITHOUT INCIDENT. INSTRUCTIONS GIVEN FOR WEEKEND AND TUESDAY'S INFUSIONS. DISMISSED IN STABLE CONDITION.
== END ==
LOC: OPONC 09:53
PROVIDERS: ATTEND Family Medicine
DX: M86.8X7 Other osteomyelitis, ankle and foot (principal); E11.621 Type 2 diabetes mellitus with foot ulcer; E44.0 Moderate protein-calorie malnutrition; L03.116 Cellulitis of left lower limb
CPT/HCPCS: 95000

== ENCOUNTER → 2019-10-20 | Outpatient (CLI) | payer OTHER | LOC: OPONC 09:39 | PROVIDERS: ATTEND Family Medicine | DX: M86.8X7 Other osteomyelitis, ankle and foot (principal) | CPT/HCPCS: 95000 ==

== ENCOUNTER → 2019-10-21 | Outpatient (CLI) | payer OTHER | LOC: OPONC 08:00 | PROVIDERS: ATTEND Family Medicine | DX: M86.8X7 Other osteomyelitis, ankle and foot (principal) | CPT/HCPCS: 95000 ==

== ENCOUNTER → 2019-10-22 | Outpatient (CLI) | payer OTHER | LOC: OPONC 08:00 | PROVIDERS: ATTEND Family Medicine | DX: M86.8X7 Other osteomyelitis, ankle and foot (principal) | CPT/HCPCS: 95000 ==

== ENCOUNTER → 2019-10-23 | Outpatient (CLI) | payer OTHER ==
[2019-10-23 15:00] VITALS: BP 142/97
--- NOTE | 2019-10-23 15:35 | NUR ---
HERE FOR DAILY IV ROCEPHIN. REPORTED TO THE ED FOR INFUSIONS SCHEDULED ON SAT/TUE/MON. C/O PAIN RT FOOT. ASKED PT TO BE SURE TO F/U WITH DR. BARONE FOR THIS. PT THINKS HE HAS AN APPT ON TUE WITH DR. BARONE. PT ARRIVED OVER 2H LATE FOR TODAY'S APPT AND ONLY AFTER RECEIVING A PHONE CALL TO REMIND HIM TO COME. STATES HE SLEPT THROUGH HIS ALARM. BEHAVIOR APPROPRIATE AND COMPLIANT THIS VISIT. SEEMS A BIT FORGETFUL OR SCATTERED IN THOUGHT PROCESS. PICC DSG CHANGE DONE. NO BLOOD RETURN FROM EITHER PORT EVEN WITH VIGOROUS FLUSHING. BOTH SIDES FLUSH EASILY. WILL NEED TO ADDRESS ON THUR IF STILL NO BLOOD RETURN. PT TOLERATED INFUSION WITHOUT INCIDENT. DISMISSED IN STABLE CONDITION. SCHEDULED TO RETURN AGAIN TOMORROW FOR INFUSION IN THE ED.
== END ==
LOC: OPONC 08:21
PROVIDERS: ATTEND Family Medicine
DX: M86.8X7 Other osteomyelitis, ankle and foot (principal)
CPT/HCPCS: 95000

== ENCOUNTER → 2019-10-24 | Outpatient (CLI) | payer SELFPAY | LOC: OPONC 08:00 | PROVIDERS: ATTEND Family Medicine | DX: M86.8X7 Other osteomyelitis, ankle and foot (principal) | CPT/HCPCS: 95000 ==

== ENCOUNTER → 2019-10-25 | Outpatient (CLI) | payer SELFPAY ==
[2019-10-25 14:56] VITALS: BP 170/104
--- NOTE | 2019-10-25 15:00 | NUR ---
IN FOR DAILY ROCEPHIN INFUSION. EDEMA TO LOWER LEGS AND FEET DECREASING. PATIENT STATED HIS IS CHANGING HIS DRESSINGS DAILY. DENIED N/V, DIARRHEA, FEVER/CHILLS. TOLERATED INFUSION WITHOUT INCIDENT. RECEIVED GOOD BLOOD RETURN FROM BOTH LUMES OF PICC LINE AND FLUSHED EASILY. SITE WNL. TO RETURN TOMORROW FOR THE SAME. DISMISSED IN STABLE CONDITION.
== END ==
LOC: OPONC 08:28
PROVIDERS: ATTEND Family Medicine
DX: M86.9 Osteomyelitis, unspecified (principal)
CPT/HCPCS: 95000

== ENCOUNTER → 2019-10-27 | Outpatient (CLI) | payer OTHER | LOC: OPONC 08:00 | PROVIDERS: ATTEND Family Medicine | DX: M86.8X7 Other osteomyelitis, ankle and foot (principal) | CPT/HCPCS: 95000 ==

== ENCOUNTER → 2019-10-29 | Outpatient (CLI) | payer OTHER | LOC: OPONC 08:00 | PROVIDERS: ATTEND Family Medicine | DX: M86.8X7 Other osteomyelitis, ankle and foot (principal) | CPT/HCPCS: 95000 ==

== ENCOUNTER → 2019-10-30 | Outpatient (CLI) | payer OTHER ==
[2019-10-30 12:56] VITALS: BP 146/89
--- NOTE | 2019-10-30 13:01 | NUR ---
IN FOR LAST DAILY ROCEPHIN INFUSION. STATED FEET ARE FEELING BETTER AND ARE JUST SORE. STILL WITH SOME PAIN TO RIGHT FOOT. TOLERATED INFUSION WITHOUT INCIDENT. REMOVED PICC LINE WITH TIP INTACT. PATIENT IS TO FOLLOWUP WITH DR. BARONE ABOUT [facility] TREATMENT PLAN. DISMISSED IN STABLE CONDITION.
== END ==
LOC: OPONC 08:29
PROVIDERS: ATTEND Family Medicine
DX: M86.8X7 Other osteomyelitis, ankle and foot (principal)
CPT/HCPCS: 95000